=== PATIENT | female | born 1995 | race Caucasian/White ===

== ENCOUNTER 2020-06-14 00:31 | Emergency (ER) | payer OTHER ==
[~2020-06-14] VITALS: Ht 165.1 cm; Wt 54.9 kg
[~2020-06-14 00:31] MED LIST: ANTICONCEPTIC PO
== END 2020-06-14 03:28 | disposition home or self-care (01) ==
LOC: ER 00:31
DX: O03.9 Complete or unspecified spontaneous abortion without complication (principal)

== ENCOUNTER 2020-09-16 11:51 | Emergency (ER) | payer OTHER ==
[~2020-09-16] VITALS: Ht 165.1 cm; Wt 54.4 kg
[2020-09-16] MEDS ORDERED: KETO10TA2 PO (15:31)
== END 2020-09-16 15:41 | disposition home or self-care (01) ==
LOC: ER 11:51
DX: N92.5 Other specified irregular menstruation (principal); Z20.828 Contact with and (suspected) exposure to other viral communicable diseases

== ENCOUNTER → 2021-04-22 | Outpatient (CLI) | payer OTHER ==
[~2021-04-22] MED LIST changes: +KETO10TA2 PO
== END | disposition home or self-care (01) ==
LOC: PRENATAL 13:40
PROVIDERS: ATTEND Obstetrics & Gynecology Maternal & Fetal Medicine
DX: O35.0XX1 Maternal care for (suspected) central nervous system malformation in fetus, fetus 1 (principal); O35.3XX1 Maternal care for (suspected) damage to fetus from viral disease in mother, fetus 1; O98.512 Other viral diseases complicating pregnancy, second trimester; O28.1 Abnormal biochemical finding on antenatal screening of mother; Z36.89 Encounter for other specified antenatal screening; Z3A.21 21 weeks gestation of pregnancy

== ENCOUNTER → 2021-06-18 | Outpatient (CLI) | payer OTHER ==
[~2021-06-18] MED LIST changes: +DIALYVITE 800-1 EACH PO; +PRENATAL TABLE1 EAC1 PO; +SYNTHROID100 MCG PO
== END | disposition home or self-care (01) ==
LOC: OBS/DEL 18:40
PROVIDERS: ATTEND Obstetrics & Gynecology
DX: O99.013 Anemia complicating pregnancy, third trimester (principal); D64.89 Other specified anemias; O98.513 Other viral diseases complicating pregnancy, third trimester; U07.1 COVID-19; O26.893 Other specified pregnancy related conditions, third trimester; E87.6 Hypokalemia; E86.0 Dehydration; Z3A.29 29 weeks gestation of pregnancy

== ENCOUNTER 2021-07-13 10:00 | Outpatient (CLI) | payer OTHER | END 2021-07-13 11:13 | disposition home or self-care (01) | LOC: PRENATAL 10:00 | PROVIDERS: ATTEND Obstetrics & Gynecology Maternal & Fetal Medicine | DX: O26.843 Uterine size-date discrepancy, third trimester (principal); O28.1 Abnormal biochemical finding on antenatal screening of mother; O36.8131 Decreased fetal movements, third trimester, fetus 1; Z36.89 Encounter for other specified antenatal screening; Z3A.33 33 weeks gestation of pregnancy ==

== ENCOUNTER 2021-08-20 10:30 | Inpatient (IN) | payer OTHER ==
[~2021-08-20] VITALS: Ht 165.1 cm; Wt 65.8 kg
[2021-08-30] MEDS ORDERED: INTEGRA PLUS C1 EACH (06:32)
== END 2021-09-01 12:08 | disposition home or self-care (01) | DRG 807 ==
LOC: OB/GYN 08-30 05:25 → LDR 08-30 05:25 → OB/GYN 08-30 15:40 → SURH 08-31 10:30 → OB/GYN 09-01 12:08
PROVIDERS: ADMIT Obstetrics & Gynecology; ATTEND Obstetrics & Gynecology
PROC: 10E0XZZ Delivery of Products of Conception, External Approach (ICD-10-PCS; principal; 2021-08-30)
PROC: 0W8NXZZ Division of Female Perineum, External Approach (ICD-10-PCS; 2021-08-30)
PROC: 4A1HXCZ Monitoring of Products of Conception, Cardiac Rate, External Approach (ICD-10-PCS; 2021-08-30)
PROC: 3E033VJ Introduction of Other Hormone into Peripheral Vein, Percutaneous Approach (ICD-10-PCS; 2021-08-30)
DX: O80 Encounter for full-term uncomplicated delivery (principal); Z37.0 Single live birth; Z3A.39 39 weeks gestation of pregnancy; Z20.822 Contact with and (suspected) exposure to COVID-19

== ENCOUNTER 2022-10-29 12:38 | Emergency (ER) | payer OTHER ==
[~2022-10-29] VITALS: Ht 165.1 cm; Wt 53.1 kg
[~2022-10-29 12:38] MED LIST changes: +INTEGRA PLUS C1 EACH
== END 2022-10-29 14:35 | disposition home or self-care (01) ==
LOC: ER 12:38
DX: B37.31 Acute candidiasis of vulva and vagina (principal); E03.9 Hypothyroidism, unspecified